=== PATIENT | female | born 2005 | race Caucasian/White ===

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

== ENCOUNTER 2023-09-01 13:19 | Emergency (ER) | payer MEDICAID ==
[2023-09-01 13:38] VITALS: BP 129/90; PULSE 108; RESP 18; TEMP 98.1; O2SAT 98
--- NOTE | 2023-09-01 14:19 | ERPHSYRPT ---
- History of Present Illness Time Seen by Provider: 09/01/23 13:23 Source: patient Exam Limitations: no limitations Patient Subjective Stated Complaint: Patient c/o rash to bilateral armpits. States, "I think it's a yeast infection." Patient unsure of exact onset date but states that this has been going on for a few weeks and is getting worse. Triage Nursing Assessment: Patient ambulated back to ER. She is alert and oriented. She does have a red rash to her bilateral armpits. No open areas or drainage present at this time. Physician History: 18 years old female presented in the ER with complains of bilateral axilla rash. Patient reported initially it felt as if she used a new deodorant. She has not been using it but still having the rash. Reports burning and itching sensation. No pustules or vesicles/discharge. Allergies/Adverse Reactions: No Known Drug Allergies Allergy (Verified 09/01/23 13:26) Home Medications: ARIPiprazole [Aripiprazole] 1 tab PO DAILY 09/01/23 [History] Trazodone HCl 50 mg [Desyrel 50 mg] 100 mg PO HS 09/01/23 [History] Hx Tetanus, Diphtheria Vaccination/Date Given: Yes Hx Influenza Vaccination/Date Given: Yes Hx Pneumococcal Vaccination/Date Given: No Immunizations Up to Date: Yes Travel Risk - International Travel Have you traveled outside of the country in past 3 weeks: No - Emerging Infectious Disease Are you exhibiting symptoms associated with any current EIDs: No - Review of Systems Constitutional: No Symptoms Respiratory: No Symptoms Cardiac: No Symptoms Abdominal/Gastrointestinal: No Symptoms Musculoskeletal: No Symptoms Skin: Skin Lesions Neurological: No Symptoms - Past Medical History Pertinent Past Medical History: Yes Psycho-Social History: Bipolar Other Medical History: Insmonia - Past Surgical History Past Surgical History: No - Female History Hx Last Menstrual Period: Irregular Hx Now: No (birthcontrol pill) - Social History Smoking Status: Never smoker Exposure to second hand smoke: No Drug Use: none Patient Lives Alone: Yes (DAD) - Nursing Vital Signs Nursing Vital Signs: Initial Vital Signs Temperature 98.1 F 09/01/23 13:28 Pulse Rate 108 H 09/01/23 13:28 Respiratory Rate 18 09/01/23 13:28 Blood Pressure 129/90 09/01/23 13:28 O2 Sat by Pulse Oximetry 98 09/01/23 13:28 Pain Scale Pain Intensity 4 - Physical Exam General Appearance: no apparent distress Eye Exam: PERRL/EOMI Neck Exam: normal inspection, full range of motion Respiratory Exam: normal breath sounds, lungs clear Cardiovascular Exam: normal heart sounds, tachycardia Extremity Exam: normal inspection, normal range of motion Neurologic Exam: alert, oriented x 3, cooperative Skin Exam: normal color, other (redness in the skin folds of axilla. Moist. Minimally tender.) SpO2 Interpretation: normal SpO2: 98 O2 Delivery: Room Air - Progress Progress: unchanged Progress Note: 09/01/23 14:16 18 years old is evaluated in ER for bilateral axillary rash. It is in the axilla skin folds. I believe patient is having intertrigo, will start on nystatin powder. Recommended keeping it clean and dry. Outpatient follow-up. Counseled pt/family regarding: diagnosis, need for follow-up Medical Desision Making - Risk of complications The pt has a mod risk of morbidity or mortality based on: Need for prescription drug management - Departure Departure Disposition: Home Clinical Impression: Intertrigo Condition: Stable Critical Care Time: No Referrals: LADY WILSON NP [Primary Care Provider] - Follow up/PCP as directed Instructions: Intertrigo (DC) Additional Instructions: Keep the area dry and clean. Follow-up with primary care for reevaluation. Return to ER for any worsening. Prescriptions: Nystatin Powder 15 gm [Nystop Powder 15 gm] 60 gm TP BID 7 Days #1 [email or web address]
== END 2023-09-01 14:10 | disposition home or self-care (01) ==
LOC: ED 13:19
DX: L30.4 Erythema intertrigo (principal); Z79.899 Other long term (current) drug therapy
CPT/HCPCS: 99281